=== PATIENT | female | born 1990 | race Caucasian/White ===

== ENCOUNTER 2019-12-09 17:37 | Emergency (ER) | payer MEDICAID ==
[~2019-12-09] VITALS: Ht 165.1 cm; Wt 75.2 kg
[2019-12-09 17:56] VITALS: BP 121/68
--- NOTE | 2019-12-09 18:43 | NUR ---
MEDICAL SECRETARY: CALLED FOR ROOM , [facility]
--- NOTE | 2019-12-09 19:18 | NUR ---
called x 3, no answer. not in the lobby
== END 2019-12-09 19:20 | disposition left against medical advice (07) ==
LOC: ED 19:14
DX: K08.89 Other specified disorders of teeth and supporting structures (principal); Z53.21 Procedure and treatment not carried out due to patient leaving prior to being seen by health care provider